=== PATIENT | male | born 1975 | race Hispanic/Latino ===

== ENCOUNTER 2016-12-08 14:01 | Emergency (ER) | payer SELFPAY | END 2016-12-08 14:33 | disposition home or self-care (01) | LOC: NAV ERS 14:01 | DX: M77.11 Lateral epicondylitis, right elbow (principal); M54.6 Pain in thoracic spine; F17.210 Nicotine dependence, cigarettes, uncomplicated; X50.0XXA Overexertion from strenuous movement or load, initial encounter; Y99.0 Civilian activity done for income or pay | CPT/HCPCS: 99283 ==